=== PATIENT | male | born 1985 | race Caucasian/White ===

== ENCOUNTER 2018-04-09 23:00 | Inpatient (IN) | payer SELFPAY ==
[~2018-04-09] VITALS: Ht 185.4 cm; Wt 104.3 kg
[2018-04-09] MEDS ORDERED: BIVALIRUDIN 250 MG VIAL. IV ONE ×2 (23:06→23:30)
[2018-04-09] MEDS ORDERED: NITROGLYCERIN 200 MCG/2 ML SYRINGE FOR CATH/VASC LAB. ONE (23:09)
[2018-04-09] MEDS ORDERED: HEPARIN for IV BOLUS 10,000 UNIT/10 ML VIAL. ONE (23:09)
[2018-04-09] MEDS ORDERED: VERAPAMIL 5 MG/2 ML VIAL. ONE (23:09)
[2018-04-09] MEDS ORDERED: MIDAZOLAM HCL/PF 2 MG/2 ML VIAL. ONE (23:12)
[2018-04-09] MEDS ORDERED: fentaNYL PF VIAL 100 MCG/2 ML VIAL ONE (23:12)
[2018-04-09] MEDS ORDERED: fentaNYL PF VIAL 100 MCG/2 ML VIAL IV ONE (23:30)
[2018-04-09] MEDS ORDERED: LIDOCAINE 1% PF 30 ML VIAL. INJ ONE (23:30)
[2018-04-09] MEDS ORDERED: HEPARIN for IV BOLUS 10,000 UNIT/10 ML VIAL. IART ONE (23:30)
[2018-04-09] MEDS ORDERED: MIDAZOLAM HCL/PF 2 MG/2 ML VIAL. IV ONE (23:30)
[2018-04-09] MEDS ORDERED: IODIXANOL 320 MG/ML 100 ML VIAL. IART ONE (23:30)
[2018-04-09] MEDS ORDERED: VERAPAMIL 5 MG/2 ML VIAL. IART ONE (23:30)
[2018-04-09] MEDS ORDERED: NITROGLYCERIN 200 MCG/2 ML SYRINGE FOR CATH/VASC LAB. IART ONE (23:30)
[2018-04-09] MEDS ORDERED: IODIXANOL 320 MG/ML 100 ML VIAL. ONE (23:39)
[2018-04-09] MEDS ORDERED: TIROFIBAN 5MG -0.9% NS 100 ML IV ONE (23:41)
[2018-04-10] VITALS (19 sets, daily range): BP systolic 104–151; BP diastolic 74–90
[2018-04-10] MEDS ORDERED: TIROFIBAN 5MG -0.9% NS 100 ML IV PRN
[2018-04-10] MEDS ORDERED: BIVALIRUDIN 250 MG VIAL. IV ONE ×2 (00:04→00:30)
[2018-04-10] MEDS ORDERED: PRASUGREL 10 MG TABLET. PO ONE (00:45)
--- NOTE | 2018-04-10 00:57 | PDOC2 ---
CARDIOLOGY CONSULT NOTE CHEIF COMPLAINT: Chest pain HPI: 32 y.o male presented to [place] ER with stuttering CP x 4 hours. Noted to have abnormal EKG suggestive of anterior STEMI. Transferred to [place] for urgent cath. No prior cardiac history. No new stressors. At baseline he is very active, plays in semi-pro football. PMHX: None SOCHX: Smokes marijuana, works at a [employer] company Uninsured Has a fiance, mother and sister. FAMHX: +CVA, HTN CURRENT MEDS: ASA, Bivalirudin in lab intern. ALLERGIES: Allergies Coded Allergies Type Severity Reaction Last Updated Verified No Known Drug Allergies 04/09/18 No ROS: Negative for 04/24 systems reviewed unless otherwise noted above in HPI PHYSICAL EXAM: Vital Signs: VSS: BP 130/80, HR 100 Physical Exam: GEN.: moderate distress from pain HEENT: Head is normocephalic, atraumatic NECK: Supple. LUNGS: Clear to auscultation. HEART: RRR, S1, S2 present. Peripheral pulses intact ABDOMEN: Soft, nontender. Positive bowel sounds. EXTREMITIES: Without any cyanosis. NEUROLOGIC: Normal speech, normal tone PSYCHIATRIC: Normal affect, normal mood. SKIN: No ulcerations DIAGNOSTIC TESTING: EKG with anterior/inferior STEMI Cr 1.6 Trop 0.061 ASSESSMENT: 1. Anterior STEMI 2. elevated cr, possible acute versus chronic renal insufficiency 3. Substance abuse. PLAN: 1. Underwent drug eluting stent placement in the LAD. 2. ASA 81mg daily, Prasugrel 10mg daily, b-troy, statin. 3. Referral to social sciences lecturer for insurance issues. 4. Check echo in a.m. 5. Supportive care. Discussed with family. *His cath revealed essentially normal anatomy except focal LAD area of thrombus. Cannot rule out other source, could consider hematologic w/u on an outpt basis. Thanks for this consultation. BETINA CENTENO MD Apr 10, 2018 00:57
[2018-04-10] MEDS ORDERED: 0.9 % SODIUM CHLORIDE 10 ML DISP.SYRIN. IV PRN (01:00)
[2018-04-10] MEDS ORDERED: NITROGLYCERIN SUBLINGUAL 0.4 MG BOTTLE OF 25. SL PRN (01:00)
[2018-04-10] MEDS ORDERED: ATROPINE 0.5 MG/5 ML DISP.SYRINGE. IV PRN (01:00)
[2018-04-10] MEDS ORDERED: LIDOCAINE 2% 100 MG/5 ML SYRINGE. IV PRN (01:00)
[2018-04-10] MEDS ORDERED: ACETAMINOPHEN 325 MG TABLET. PO PRN (01:00)
[2018-04-10] MEDS ORDERED: AMIODARONE 150 MG in IV DEXTROSE 5% 100ML 100 ML IV PRN (01:00)
[2018-04-10] MEDS: fentaNYL PF VIAL 100 MCG/2 ML VIAL IV PRN ×4 (01:14→07:30)
--- NOTE | 2018-04-10 04:28 | EKG ---
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
[2018-04-10 04:57] LABS: CALCIUM 8.8 mg/dL (8.5-10.1); CREATININE 1.2 mg/dL (0.7-1.3); GFR 69.7; POTASSIUM 4.2 mmol/L (3.5-5.1)
[2018-04-10 04:58] LABS: CHOLESTEROL/HDL RATIO 5.2
[2018-04-10] MEDS: METOPROLOL TART IMMED RELEASE 25 MG TABLET. PO SCH ×2 (09:37→21:30)
--- NOTE | 2018-04-10 14:16 | CARD ---
MR#: [id number] Date of Study: 04/09/2018 Ordering Physician: BETINA CENTENO, Referring Physician: BETINA CENTENO, Tech: RT Josette (R) APPROVED REPORT Technologist: RT Josette (R) Nurse: Martha Masterson RN Procedure(s) performed: Moderate Sedation: 102 min LHC, Coronary angiography Aspiration thrombectomy, PTCA and PCI of the proximal LAD IVUS of the proximal LaD HISTORY : The patient is a 32 year-old male with a history of . INDICATION The indication(s) include : STEMI . PROCEDURE NARRATIVE INFORMED CONSENT: After explaining the risks and benefits of the procedure and alternatives, informed consent was obtained. The patient was brought emergently to the cardiac catheterization lab. A timeout was performed confi rming the patient's name, date of , procedure, and site of procedure. All necessary personnel w ere wearing the appropriate protective equipment and radiation monitor devices. (See nursing notes for medications administered). ACCESS: The right wrist was sterilely prepped and draped in the usual fashion. The right wrist was infiltrat ed with 1 mL of 2% lidocaine for subcutaneous anesthesia. A 6 Vietnamese Terumo glide sheath was inserte d into the right radial artery without difficulty. CORONARY ANGIOGRAPHY: Right and left coronary angiography was performed using a 6Fr Ikari R 1.5 guide catheter. Left vent ricular end diastolic pressure was obtained with an EBU catheter and pullback was performed. All cat heter exchanges and advancements were performed over a guidewire. FINDINGS: HEMODYNAMICS: LVEDP 22 mm Hg No gradient on LV to aortic pullback. AO: 128/78 LEFT VENTRICULOGRAM: Deferred due to renal insufficiency. CORONARY ANGIOGRAPHY: LM is a large caliber vessel with normal angiographic appearance. LAD is a large caliber vessel with large thrombus burden in the proximal LAD. The mid and distal vess el is free of disease. The apical LAD wraps around the apex and had embolization. D1 is a moderate caliber vessel with normal angiographic apeparance. LCx is a large caliber non-dominant vessel with normal angiographic appearance. OM1 is a moderate caliber vessel with normal angiographic appearance. RCA is a moderate caliber dominant vessel with normal angiographic appearance. RPDA and RPL are moderate caliber vessels with normal angiographic appearance. INTERVENTIONAL TECHNIQUE: Bivalirudin was used for anticoagulation. Through a 6Fr EBU 3.0 guide catheter, a 0.014'' prowater wi re was used to cross the LAD thrombus. Next, two rounds of aspiration thrombectomy was performed. Nex t, balloon angioplasty with a Euphora 3.5/15mm balloon at 14 harshad was performed. The lesion was stente d with a 4.0/26 mm Resoltue Windsor RAI at 18 harshad. Post-dilated with a 4.5 mm NC balloon at 16 harshad. Next , attempts were made to wire the 1st septal as the patient continued to have pain but due to tortuous ity, small caliber of the vessel a balloon could not be advanced. Therefore, simple dottering with th e wire was performed. Due to substantial plaque shift and thrombus burden, there was SONNY 0 flow in t he 1st septal. The distal LAD was noted to have SONNY 1-2 flow at case completion due to distal emboli zation that did not improve despite vasodilators and rescue GP2B/3A treatment with Tirofiban bolus. F inally, stent placement and apposition was confirmed with an IVUS catheter. CLOSURE: At case completion the right radial sheath was removed and a Terumo radial band was applied with 13 m l of air. COMPLICATIONS: The patient tolerated the procedure well and there were no immediate complications. The patient recei rafita ASA 325mg prior to the case and had Prasugrel 60mg at case completion. Conclusion 1. Anterior STEMI - Thrombus in the LAD noted, does not appear to be plaque rupture. No proximal LM s ource noted. Possibly reactive related to drug use 2. Mildly elevated LVEDP 3. Successful aspiration thrombectomy, PCI of the LAD with implantation of a 4.0/26 mm RAI, post-dila january with a 4.5mm NC balloon with excellent positioning on IVUS. Recommendations ASA 81mg daily Prasugrel 10mg daily, convert to Plavix if patient unable to get insurance. High dose statin therapy Cessation of drug abuse. Consider outpt evaluation of hypercoag state. Signed by : Betina Centeno, Electronically Approved : 04/10/2018 14:14:45
--- NOTE | 2018-04-10 14:19 | CARD ---
MR#: [id number] Date of Study: 04/10/2018 Ordering Physician: LEANDRO CENTENO, Referring Physician: LEANDRO CENTENO, Tech: Christa Darnell RDCS APPROVED REPORT EXAM: Two-dimensional and M-mode echocardiogram with Doppler and color Doppler. Other Information Quality : GoodHR: 64bpm INDICATION Non STEMI 2D DIMENSIONS Left Atrium(2D)3.4 (1.6-4.0cm)IVSd0.9 (0.7-1.1cm) Aortic Root(2D)2.1 (2.0-3.7cm)LVDd4.8 (3.9-5.9cm) LVOT Diameter2.0 (1.8-2.4cm)PWd1.0 (0.7-1.1cm) LA Squgvh21 (18-58mL)LVDs3.2 (2.5-4.0cm) FS (%) 32.6 %SV65.1 ml LVEF(%)60.9 (>50%)CO4.0 L/min M-Mode DIMENSIONS Aortic Cusp Exc1.59 (1.5-2.0cm) Aortic Valve AoV Peak Jeramie.124.4cm/sAoV VTI22.4cm AO Peak GR.6.2mmHgLVOT VTI 15.29cm AO Mean GR.4mmHgAVA (VTI)2.19cm2 Mitral Valve MV E Lshfwsls41.1cm/sMV DECEL LDHV322is MV A Cfbzpyjq71.0cm/sE/A Ratio1.7 MV A Jfcleaec759pj TDI Lateral E' P. V10.75cm/sMedial E' P. V11.84cm/s E/Lateral E'7.0E/Medial E'6.3 Pulmonary Valve PV Peak Gegjenek59.7cm/s Tricuspid Valve TR P. Ddyrztkw585db/sTR Peak Gr.12mmHg LEFT VENTRICLE The left ventricle is normal size. There is normal left ventricular wall thickness. The left ventricu lar systolic function is grossly normal. Very suboptimal images. EF probably 50%. The proximal to mid septum is akinetic. Anterior wall not well visualized. Otherwise, remainder of the calderón are grossly normal. Tissue Doppler imaging reveals mild left ventricular diastolic dysfunction. RIGHT VENTRICLE The right ventricle is normal size. There is normal right ventricular wall thickness. The right ventr icular systolic function is normal. ATRIA The left atrium size is normal. The right atrium size is normal. The interatrial septum is intact wit h no evidence for an atrial septal defect or patent foramen ovale as noted on 2-D or Doppler imaging. AORTIC VALVE The aortic valve is normal in structure and function. Doppler and Color Flow revealed no significant aortic regurgitation. There is no significant aortic valvular stenosis. There is no aortic valvular v egetation. MITRAL VALVE The mitral valve is normal in structure and function. There is no evidence of mitral valve prolapse. There is no mitral valve stenosis. Doppler and Color-flow revealed trace mitral regurgitation. TRICUSPID VALVE The tricuspid valve is normal in structure and function. Doppler and Color Flow revealed trace to mil d tricuspid regurgitation. There is no tricuspid valve prolapse or vegetation. There is no tricuspid valve stenosis. PULMONIC VALVE Doppler and Color Flow revealed mild pulmonic valvular regurgitation. There is no pulmonic valvular s tenosis. GREAT VESSELS The aortic root is normal in size. The ascending aorta is normal in size. The IVC is normal in size a nd collapses >50% with inspiration. PERICARDIAL EFFUSION There is small pleural effusion. There is a small pericardial effusion. Critical Notification Critical Value: No <Conclusion> The left ventricular systolic function is grossly normal. Very suboptimal images. EF probably 50%. The proximal to mid septum is akinetic. Anterior wall not well visualized. Otherwise, remainder of th e calderón are grossly normal. There is a trace to small pericardial effusion. Signed by : Leandro Centeno, Electronically Approved : 04/10/2018 14:17:42
--- NOTE | 2018-04-10 15:20 | PDOC ---
Provider Note Provider Note No new cardio recs. Continue present meds. anticipate dc tomorrow. ss consult. BETINA Vaughn MD Apr 10, 2018 15:20
[2018-04-10] MEDS ORDERED: ATORVASTATIN CALCIUM 40 MG TABLET. PO SCH (21:00)
[2018-04-11 03:49] VITALS: BP 127/69
[2018-04-11 07:00] VITALS: BP 124/63
[2018-04-11] MEDS ORDERED: ASPIRIN ENTERIC COATED 81 MG TABLET.DR. PO SCH (08:00)
[2018-04-11] MEDS ORDERED: PRASUGREL 10 MG TABLET. PO SCH (08:00)
[2018-04-11] MEDS: METOPROLOL TART IMMED RELEASE 25 MG TABLET. PO SCH (08:52)
[2018-04-11] MEDS ORDERED: PRAS10TA9 PO (09:45)
[2018-04-11] MEDS ORDERED: METO25TA4 PO (09:45)
[2018-04-11] MEDS ORDERED: ASPI-612 PO (09:45)
[2018-04-11] MEDS ORDERED: ATOR40TA59 PO (09:45)
--- NOTE | 2018-04-11 09:56 | PDOC3 ---
*Discharge Summary* Date of Admission: Apr 10, 2018 Date of Discharge: Apr 11, 2018 Admitting Diagnosis 1. STEMI, anterior 2. HLD 3. tobacco abuse Final Diagnosis 1. STEMI, anterior, s/p RAI to LAD 2. HLD 3. tobacco/THC abuse Procedures 04/10/[address] Pravin Haile: LEFT VENTRICULOGRAM: Deferred due to renal insufficiency. CORONARY ANGIOGRAPHY: LM is a large caliber vessel with normal angiographic appearance. LAD is a large caliber vessel with large thrombus burden in the proximal LAD. The mid and distal vessel is free of disease. The apical LAD wraps around the apex and had embolization. D1 is a moderate caliber vessel with normal angiographic apeparance. LCx is a large caliber non-dominant vessel with normal angiographic appearance. OM1 is a moderate caliber vessel with normal angiographic appearance. RCA is a moderate caliber dominant vessel with normal angiographic appearance. RPDA and RPL are moderate caliber vessels with normal angiographic appearance. Conclusion 1. Anterior STEMI - Thrombus in the LAD noted, does not appear to be plaque rupture. No proximal LM source noted. Possibly reactive related to drug use 2. Mildly elevated LVEDP 3. Successful aspiration thrombectomy, PCI of the LAD with implantation of a 4.0 /26 mm RAI, post-dilated with a 4.5mm NC balloon with excellent positioning on IVUS. Recommendations ASA 81mg daily Prasugrel 10mg daily, convert to Plavix if patient unable to get insurance. High dose statin therapy Cessation of drug abuse. Consider outpt evaluation of hypercoag state. 04/10/2018: TTE: The left ventricular systolic function is grossly normal. Very suboptimal images. EF probably 50%. The proximal to mid septum is akinetic. Anterior wall not well visualized. Otherwise, remainder of the calderón are grossly normal. There is a trace to small pericardial effusion. Brief Hospital Course Mr. Paulson is a 32 old male transferred from [facility] with STEMI; troponin peaked @ 35.292. Went to optical laboratory technician emergently with PCI/RAI to LAD. Placed on DAPT with prasugrel. LDLs = 127 and statin therapy started. Smoking and THC cessation advised. No dysrhythmias overnight. No anginal symptoms overnight. Right radial puncture site C/D/I with 2+ pulse and brisk cap refill. Discharged home today; may return to work unrestricted on 04/25/2018. Disposition/Orders: D/C to Home CONDITION AT DISCHARGE: Stable Diet: 2 gr sodium, Cardiac Home Meds Active Scripts Metoprolol Tartrate (METOPROLOL TARTRATE) 25 Mg Tablet, 25 MG PO BID for 30 Days , #60 TAB 6 Refills Prov:AKANKSHA LEA 04/11/18 Atorvastatin Calcium (ATORVASTATIN CALCIUM) 40 Mg Tablet, 40 MG PO QHS for 30 Days, #30 TAB 6 Refills Prov:AKANKSHA LEA 04/11/18 Aspirin (ASPIRIN EC) 81 Mg Tablet., 81 MG PO DAILYWBKFT, #30 TAB.SR 6 Refills Prov:AKANKSHA LEA 04/11/18 Prasugrel Hcl (EFFIENT) 10 Mg Tablet, 10 MG PO DAILYWBKFT for 30 Days, #30 TAB 6 Refills Prov:AKANKSHA LEA PACKING MACHINE CAN FEEDER 04/11/18 Scheduled Aspirin (Aspirin Ec), 81 MG PO DAILYWBKFT Atorvastatin Calcium (Atorvastatin Calcium), 40 MG PO QHS Metoprolol Tartrate (Metoprolol Tartrate), 25 MG PO BID Prasugrel Hcl (Effient), 10 MG PO DAILYWBKFT Scripts Metoprolol Tartrate (METOPROLOL TARTRATE) 25 Mg Tablet 25 MG PO BID for 30 Days, #60 TAB 6 Refills Prov: AKANKSHA LEA 04/11/18 Atorvastatin Calcium (ATORVASTATIN CALCIUM) 40 Mg Tablet 40 MG PO QHS for 30 Days, #30 TAB 6 Refills Prov: AKANKSHA LEA 04/11/18 Aspirin (ASPIRIN EC) 81 Mg Tablet. 81 MG PO DAILYWBKFT, #30 TAB.SR 6 Refills Prov: AKANKSHA LEA 04/11/18 Prasugrel Hcl (EFFIENT) 10 Mg Tablet 10 MG PO DAILYWBKFT for 30 Days, #30 TAB 6 Refills Prov: AKANKSHA LEA 04/11/18 FOLLOW UP APPOINTMENT: 4-[address] Haile PCP 7-10 days Time Spent Total time spent with patient [35] minutes for coordination of care, counseling , and education. AKANKSHA LEA PACKING MACHINE CAN FEEDER Apr 11, 2018 09:56
[2018-04-11 10:32] VITALS: BP 123/66
== END 2018-04-11 11:15 | disposition home or self-care (01) | DRG 247 ==
LOC: 1 WEST ICU 23:00 → 2 NORTH 04-10 18:36
PROVIDERS: ADMIT Internal Medicine Cardiovascular Disease; ATTEND Internal Medicine Cardiovascular Disease
PROC: 027034Z Dilation of Coronary Artery, One Artery with Drug-eluting Intraluminal Device, Percutaneous Approach (ICD-10-PCS; principal; 2018-04-10)
PROC: 02C03ZZ Extirpation of Matter from Coronary Artery, One Artery, Percutaneous Approach (ICD-10-PCS; 2018-04-10)
PROC: 4A023N7 Measurement of Cardiac Sampling and Pressure, Left Heart, Percutaneous Approach (ICD-10-PCS; 2018-04-10)
PROC: B2111ZZ Fluoroscopy of Multiple Coronary Arteries using Low Osmolar Contrast (ICD-10-PCS; 2018-04-10)
PROC: B240ZZ3 Ultrasonography of Single Coronary Artery, Intravascular (ICD-10-PCS; 2018-04-10)
DX: I21.09 ST elevation (STEMI) myocardial infarction involving other coronary artery of anterior wall (principal); E78.5 Hyperlipidemia, unspecified; F12.10 Cannabis abuse, uncomplicated; N28.9 Disorder of kidney and ureter, unspecified; Z72.0 Tobacco use; Z82.3 Family history of stroke; Z82.49 Family history of ischemic heart disease and other diseases of the circulatory system; Z71.6 Tobacco abuse counseling; Z71.51 Drug abuse counseling and surveillance of drug abuser
CPT/HCPCS: 36415; 37184; 37252; 80048; 80061; 84484; 87641; 90471; 90756; 92941; 93005; 93306; 93458; 99152; 99153; 99406; C1725; C1753; C1769; C1874; C1887; C1892; J0583; J1644; J2250; J3010; J3490; J3246; Q2035